=== PATIENT | female | born 1950 | race Caucasian/White ===

== ENCOUNTER 2021-07-22 22:14 | Inpatient (IN) | payer MEDICARE, MEDICAID ==
[~2021-07-22] VITALS: Ht 170.2 cm; Wt 83.5 kg
[2021-07-22] MEDS ORDERED: ASPIRIN 81MG TABLET PO ONE (22:45)
[2021-07-22] MEDS ORDERED: NITROGLYCERIN 0.4MG TABLET SL SL PRN (22:45)
[2021-07-22] MEDS ORDERED: DOCUSATE SODIUM 100MG CAPSULE PO NR (23:00)
[2021-07-23 05:25] LABS: BASOPHILS % 0.7 % (0.0-2.0); EOSINOPHILS % 2.5 % (0.0-5.0); HEMATOCRIT. 31.7 % (36.0-48.0); HEMOGLOBIN. 10.5 g/dL (12.0-16.0); LYMPHOCYTES % 27.7 % (20.0-50.0); MEAN CORPUSCULAR HEMOGLOBIN 31.3 pg (28.0-32.0); MEAN CORPUSCULAR VOLUME 94.3 fL (81.0-99.0); MEAN PLATELET VOLUME 7.1 fl (7.4-10.4); MONOCYTES % 10.5 % (2.0-8.0); NEUTROPHILS % 58.6 % (40.0-76.0); PLATELET 300 x1000/uL (130-400); RED BLOOD CELL COUNT 3.36 mill/uL (4.2-5.4); RED CELL DISTRIBUTION WIDTH 15.3 % (11.6-14.6)
[2021-07-23 05:33] LABS: CHLORIDE 104 mEq/L (98-107)
[2021-07-23] MEDS ORDERED: ONDANSETRON HCL 4MG/2ML INJ IV PRN (06:30)
[2021-07-23] MEDS ORDERED: ACETAMINOPHEN 325MG TABLET PO PRN (06:30)
[2021-07-23] MEDS ORDERED: CLONIDINE 0.1MG TABLET PO PRN (06:30)
[2021-07-23] MEDS ORDERED: GUAIFENESIN 200MG/10ML SUGAR FREE UDC PO PRN (06:30)
[2021-07-23] MEDS ORDERED: MAGNESIUM/ALUMINUM HYDROXIDE/SIMETHICONE 30ML UDC PO PRN (06:30)
[2021-07-23] MEDS ORDERED: NALOXONE HCL 0.4MG/ML VIAL IV PRN (07:30)
[2021-07-23] MEDS: SODIUM CHLORIDE 0.9% 1,000 ML IV SCH ×2 (07:30→22:19)
[2021-07-23] MEDS: ENOXAPARIN 40MG/0.4ML SYR SUBCUT SCH (08:00)
[2021-07-23] MEDS: DOCUSATE SODIUM 100MG CAPSULE PO PRN (16:02)
[2021-07-23 20:18] LABS: CREATINE KINASE 62 IU/L (26-192)
[2021-07-24] MEDS: HYDROCODONE/ACETAMINOPHEN 5/325MG TABLET PO PRN ×4 (01:13→18:22)
[2021-07-24 05:21] LABS: BASOPHILS % 1.1 % (0.0-2.0); EOSINOPHILS % 3.2 % (0.0-5.0); HEMOGLOBIN. 11.4 g/dL (12.0-16.0); LYMPHOCYTES % 31.6 % (20.0-50.0); MEAN CORPUSCULAR HEMOGLOBIN 31.8 pg (28.0-32.0); MEAN CORPUSCULAR VOLUME 95.3 fL (81.0-99.0); MEAN PLATELET VOLUME 7.3 fl (7.4-10.4); MONOCYTES % 9.5 % (2.0-8.0); NEUTROPHILS % 54.6 % (40.0-76.0); PLATELET 346 x1000/uL (130-400); RED BLOOD CELL COUNT 3.57 mill/uL (4.2-5.4); RED CELL DISTRIBUTION WIDTH 15.5 % (11.6-14.6)
[2021-07-24 05:51] LABS: CHLORIDE 106 mEq/L (98-107)
[2021-07-24 06:02] LABS: LDL CHOLESTEROL 59 mg/dL (5-100)
[2021-07-24 06:03] LABS: HDL CHOLESTEROL 55 mg/dL (40-59)
[2021-07-24 07:22] LABS: CREATINE KINASE 61 IU/L (26-192)
[2021-07-24] MEDS: ENOXAPARIN 40MG/0.4ML SYR SUBCUT SCH (08:00)
[2021-07-24 09:15] VITALS: BP 107/67
[2021-07-24 09:30] VITALS: BP 107/67
[2021-07-24] MEDS ORDERED: *PATIENT'S OWN MEDICATION STORAGE XX SCH (11:30)
[2021-07-24 12:00] VITALS: BP 132/64
[2021-07-24] MEDS ORDERED: DOXYCYCLINE 100 MG in DEXT 5% WATER 100 ML IV SCH (12:00)
[2021-07-24] MEDS: ASCORBIC ACID 500 MG TABLET PO SCH (13:13)
[2021-07-24] MEDS: ZINC SULFATE 220 MG ( 50 ) CAPSULE PO SCH (13:13)
[2021-07-24] MEDS: AMPICILLIN SOD/SULBACTAM NA 1.5 G in SODIUM CHLORIDE 0.9% 50 ML IV SCH ×2 (13:14→18:19)
[2021-07-24] MEDS: SODIUM CHLORIDE 0.9% 1,000 ML IV SCH (13:15)
[2021-07-24 16:00] VITALS: BP 122/60
[2021-07-24] MEDS ORDERED: CHOL200074 (19:21)
[2021-07-24] MEDS ORDERED: ONDA4TAB11 PO (19:21)
[2021-07-24] MEDS ORDERED: WARF1TAB85 PO (19:21)
[2021-07-24] MEDS ORDERED: WARF-67 PO (19:21)
[2021-07-24] MEDS ORDERED: OMEP20CA14 PO (19:21)
[2021-07-24] MEDS ORDERED: ALBU6.7H15 INH (19:21)
[2021-07-24] MEDS ORDERED: SIMV-43 PO (19:21)
[2021-07-24] MEDS ORDERED: SENN-257 PO (19:21)
[2021-07-24] MEDS ORDERED: NITR0.4T49 SL (19:21)
[2021-07-24] MEDS ORDERED: WARF3TAB58 PO (19:21)
[2021-07-24] MEDS ORDERED: B25 PO (19:21)
[2021-07-24] MEDS ORDERED: DOCU-150 PO (19:21)
[2021-07-24] MEDS ORDERED: LISI40TA13 PO (19:29)
[2021-07-24] MEDS ORDERED: TRAM50TA3 PO (19:29)
[2021-07-24] MEDS ORDERED: POTA20TA82 PO (19:29)
[2021-07-24] MEDS ORDERED: TEMA15CA PO (19:29)
[2021-07-24] MEDS ORDERED: TOPUD PO (19:29)
[2021-07-24] MEDS ORDERED: RISP1TAB97 PO (19:29)
[2021-07-24] MEDS ORDERED: TOPI50TA24 PO (19:29)
[2021-07-24] MEDS ORDERED: BENZ0.5T43 PO (19:29)
[2021-07-24] MEDS ORDERED: FURO40TA5 PO (19:29)
[2021-07-24 20:00] VITALS: BP 113/53
[2021-07-25] VITALS: BP 143/73
[2021-07-25] MEDS: AMPICILLIN SOD/SULBACTAM NA 1.5 G in SODIUM CHLORIDE 0.9% 50 ML IV SCH ×4 (00:39→17:35)
[2021-07-25] MEDS: SODIUM CHLORIDE 0.9% 1,000 ML IV SCH (00:45)
[2021-07-25] MEDS: HYDROCODONE/ACETAMINOPHEN 5/325MG TABLET PO PRN ×5 (01:21→22:00)
[2021-07-25 04:00] VITALS: BP 129/70
[2021-07-25] MEDS: ENOXAPARIN 40MG/0.4ML SYR SUBCUT SCH (08:00)
[2021-07-25] MEDS ORDERED: POLYETHYLENE GLYCOL 3350 (17GM) 1 DOSE PACK PO SCH (10:00)
[2021-07-25] MEDS: ASCORBIC ACID 500 MG TABLET PO SCH (10:27)
[2021-07-25] MEDS: ZINC SULFATE 220 MG ( 50 ) CAPSULE PO SCH (10:27)
[2021-07-25 16:00] VITALS: BP 146/59
[2021-07-25] MEDS: DOCUSATE SODIUM 100MG CAPSULE PO PRN (19:44)
[2021-07-25 20:00] VITALS: BP 132/55
[2021-07-25] MEDS ORDERED: NA PHOS,M-B/NA PHOS,DI-BA ENEMA 118ML PR NR (20:45)
[2021-07-25] MEDS ORDERED: HYDROMORPHONE HCL/PF 2MG/ML CPJ IV PRN (20:45)
[2021-07-25] MEDS ORDERED: LACTULOSE 20G/30ML UDC PO PRN (20:45)
[2021-07-25 22:00] VITALS: BP 133/55
== END 2021-07-25 23:45 | disposition left against medical advice (07) | DRG 603 ==
LOC: ER 22:14 → MICUSO 07-23 05:31 → 8WST 07-24 09:18
PROVIDERS: ADMIT Hospitalist; ATTEND Hospitalist
DX: L03.116 Cellulitis of left lower limb (principal); L97.929 Non-pressure chronic ulcer of unspecified part of left lower leg with unspecified severity; E44.1 Mild protein-calorie malnutrition; L03.115 Cellulitis of right lower limb; R07.9 Chest pain, unspecified; D63.8 Anemia in other chronic diseases classified elsewhere; I10 Essential (primary) hypertension; J45.909 Unspecified asthma, uncomplicated; K59.00 Constipation, unspecified; I87.2 Venous insufficiency (chronic) (peripheral); I73.9 Peripheral vascular disease, unspecified; R42 Dizziness and giddiness; R26.89 Other abnormalities of gait and mobility; R53.1 Weakness; I87.8 Other specified disorders of veins; Z53.29 Procedure and treatment not carried out because of patient's decision for other reasons; Z59.00 Homelessness unspecified; Z68.28 Body mass index [BMI] 28.0-28.9, adult; Z88.2 Allergy status to sulfonamides; Z88.6 Allergy status to analgesic agent; Z88.1 Allergy status to other antibiotic agents; Z88.5 Allergy status to narcotic agent; W19.XXXA Unspecified fall, initial encounter
CPT/HCPCS: 36415; 71045; 72170; 80053; 80061; 82550; 84443; 84484; 85025; 93005; 93306; 93970; 97161; 99291; J0295; J3490; J7060

== ENCOUNTER 2021-07-30 17:19 | Emergency (ER) | payer MEDICARE, MEDICAID ==
[~2021-07-30] VITALS: Ht 180.3 cm; Wt 116.0 kg
[~2021-07-30 17:19] MED LIST: ALBU6.7H15 INH; B25 PO; BENZ0.5T43 PO; CHOL200074; DOCU-150 PO; FURO40TA5 PO; LISI40TA13 PO; NITR0.4T49 SL; OMEP20CA14 PO; ONDA4TAB11 PO; POTA20TA82 PO; RISP1TAB97 PO; SENN-257 PO; SIMV-43 PO; TEMA15CA PO; TOPI50TA24 PO; TOPUD PO; TRAM50TA3 PO; WARF-67 PO; WARF1TAB85 PO; WARF3TAB58 PO
[2021-07-31 04:12] VITALS: BP 150/62
== END 2021-07-31 04:24 | disposition home or self-care (01) ==
LOC: ER 17:19
DX: S93.491A Sprain of other ligament of right ankle, initial encounter (principal); W18.39XA Other fall on same level, initial encounter; Y93.89 Activity, other specified; Y92.89 Other specified places as the place of occurrence of the external cause; Y99.8 Other external cause status; J45.909 Unspecified asthma, uncomplicated; I10 Essential (primary) hypertension; Z79.899 Other long term (current) drug therapy; I83.018 Varicose veins of right lower extremity with ulcer other part of lower leg; L97.818 Non-pressure chronic ulcer of other part of right lower leg with other specified severity
CPT/HCPCS: 73610; 99283

== ENCOUNTER 2023-02-08 11:16 | Emergency (ER) | payer MEDICARE, MEDICAID ==
[~2023-02-08] VITALS: Ht 172.7 cm; Wt 70.0 kg
[~2023-02-08 11:16] MED LIST changes: -B25 PO; +BENZ0.5T3 PO; -BENZ0.5T43 PO; +DIPH-1207 PO; +POTA-205 PO; -POTA20TA82 PO; +TOPI-255 PO; -TOPI50TA24 PO
[2023-02-08 11:19] VITALS: BP 143/80; PULSE 78; RESP 18; TEMP 99.1; O2SAT 99
[2023-02-08] MEDS ORDERED: BACITRACIN ZINC OINT UDPKT TOP ONE (11:45)
[2023-02-08] MEDS ORDERED: ONDANSETRON 4MG ODT PO ONE (11:45)
[2023-02-08 12:03] LABS: BASOPHILS % 0.8 % (0.0-2.0); EOSINOPHILS % 0.8 % (0.0-5.0); HEMATOCRIT. 28.3 % (36.0-48.0); HEMOGLOBIN. 9.5 g/dL (12.0-16.0); MEAN CORPUSCULAR HEMOGLOBIN 31.7 pg (28.0-32.0); MEAN CORPUSCULAR VOLUME 94.2 fL (81.0-99.0); MEAN PLATELET VOLUME 6.6 fl (7.4-10.4); MONOCYTES % 10.8 % (2.0-8.0); NEUTROPHILS % 71.6 % (40.0-76.0); PLATELET 394 x1000/uL (130-400); RED CELL DISTRIBUTION WIDTH 19.5 % (11.6-14.6)
[2023-02-08 12:10] LABS: CHLORIDE 107 mEq/L (98-107)
[2023-02-08 12:18] LABS: ETHANOL BLOOD < 10 mg/dL (-10)
== END 2023-02-08 14:18 | disposition left against medical advice (07) ==
LOC: ER 11:16
DX: R11.0 Nausea (principal); J45.909 Unspecified asthma, uncomplicated; I11.0 Hypertensive heart disease with heart failure; E78.5 Hyperlipidemia, unspecified; I50.9 Heart failure, unspecified; Z88.2 Allergy status to sulfonamides; Z88.1 Allergy status to other antibiotic agents; Z88.5 Allergy status to narcotic agent; Z88.6 Allergy status to analgesic agent; Z79.899 Other long term (current) drug therapy; Z98.890 Other specified postprocedural states; Z86.59 Personal history of other mental and behavioral disorders
CPT/HCPCS: 80048; 80307; 80329; 80320; 83690; 85025; 84484; 36415; 99283; Q0162; G0480